=== PATIENT | female | born 1960 | race Caucasian/White ===

== ENCOUNTER 2017-11-11 01:37 | Emergency (ER) | payer OTHER ==
[~2017-11-11] VITALS: Ht 152.4 cm; Wt 95.3 kg
[~2017-11-11 01:37] MED LIST: KEFLEX250 MG PO; METROPOLOL PO; PROTONIX20 MG PO; SYNTHROID88 MCG PO; ULTRACET PO
[2017-11-11] MEDS ORDERED: KETO10TA2 PO (06:44)
== END 2017-11-11 14:02 | disposition home or self-care (01) ==
LOC: ER 01:37
DX: N20.0 Calculus of kidney (principal); R10.32 Left lower quadrant pain

== ENCOUNTER 2017-11-29 14:11 | Outpatient (CLI) | payer OTHER ==
[~2017-11-29 14:11] MED LIST changes: +KETO10TA2 PO
== END 2017-11-29 14:17 | disposition home or self-care (01) ==
LOC: RAD 501 14:11
DX: N20.0 Calculus of kidney (principal)